=== PATIENT | female | born 1960 | race Caucasian/White ===

== ENCOUNTER → 2021-01-16 11:34 | Outpatient (CLI) | payer OTHER, SELFPAY | PROVIDERS: Referring Provider Physician Assistant; Visit Provider Physician Assistant | DX: R30.9 Painful micturition, unspecified (principal) | CPT/HCPCS: 87086 ==

== ENCOUNTER 2024-05-30 00:30 | Emergency (ER) | payer OTHER, SELFPAY ==
[2024-05-30] VITALS (11 sets, daily range): BP systolic 119–135; BP diastolic 54–60; PULSE 92–116; RESP 20–34; TEMP 37.6; O2SAT 93–97; BMI 47.8
[2024-05-30 01:17] LABS: Hematocrit 42.6 % (36-46); Hemoglobin 14.3 g/dL (12.0-16.0); Mean Corpuscular HGB Conc 33.5 % (30-36); Mean Corpuscular Hemoglobin 28.2 PG (26-34); Mean Corpuscular Volume 84.3 fL (80-100); Platelet Count 339 X10^3/uL (150-400); Red Blood Cell Count 5.06 X10^6/uL (4.0-5.2); Red Cell Distribution Width 14.9 % (11.6-14.8); White Blood Cell Count 9.7 X10^3/uL (4.5-11.0)
[2024-05-30 01:19] LABS: Add Manual Diff / Slide Review YES
[2024-05-30 01:23] LABS: Alanine Aminotransferase 23 IU/L (<35); Albumin 3.2 g/dL (3.5-5.0); Alkaline Phosphatase 161 U/L (38-126); Aspartate Aminotransferase 31 IU/L (14-36); BUN Creatinine Ratio 16.2 (6-22); Blood Urea Nitrogen 22 mg/dL (7-17); Calcium 9.6 mg/dL (8.4-10.2); Carbon Dioxide 21 mmol/L (22-32); Chloride 100 mmol/L (98-107); Estimated Glomerular Filt Rate 43 mL/min (>60); Globulin 3.1 g/dL (1.7-4.1); Glucose 173 mg/dL (80-110); HEMOLYSIS < 15 (0-50); Potassium 4.3 mmol/L (3.4-5.1); Sodium 133 mmol/L (137-145); Total Protein 6.3 g/dL (6.3-8.2)
[2024-05-30 01:38] LABS: Neutrophils Absolute Manual 8827 /uL (3000-5900); Total Cells Counted 100
[2024-05-30 01:39] LABS: RBC Morphology Normal Morphology
[2024-05-30 01:46] LABS: Appearance Urine UA TURBID; Bilirubin Urine UA NEGATIVE (NEGATIVE); Color Urine UA YELLOW; Glucose Urine UA 3+ g/dL (Negative); Ketones Urine UA 1+ (NEGATIVE); Leukocyte Esterase Urine UA 1+ (NEGATIVE); Nitrite Urine UA NEGATIVE (Negative); Occult Blood Urine UA 3+ (Negative); Protein Urine UA 2+ (Negative); Specific Gravity Urine UA 1.025 (1.000-1.035); Urobilinogen Urine UA 0.2 E.U./dL (0.2)
--- NOTE | 2024-05-30 01:50 | ED_ITS ---
HPI - Abdominal Pain General Chief Complaint: Urogenital-Female Stated Complaint: abd pain Time Seen by Provider: 05/30/24 01:50 Source: patient Mode of arrival: EMS History of Present Illness HPI narrative: Patient is a 63-year-old female with a past medical history of hypertension hyperlipidemia comes into the ED from home via EMS for evaluation of ?not feeling well to note she states that she did have a stent placed to her right kidney on 05/05/2024 and was started on Cipro, she states that she has 1 more day of this antibiotic, she denies any actual true flank pain or abdominal pain just states that she feels ?poor/off. Patient states that she follows with Urology at [facility] in [place]. States that she has an appointment for a follow up CT scan next week to discuss whether or not stent needs to be removed or if patient needs a nephrostomy tube. She states that she is having issues with this given the fact that in the past she had a very large stone that cause scarring and is now having recurrent UTI/pyelonephritis issues. She states that she is not having any other symptoms at this time. Related Data Home Medications Medication Instructions Recorded Confirmed amlodipine 10 mg tablet 10 mg PO DAILY 01/16/21 01/16/21 ciclesonide 80 mcg/actuation 1 puff inhalation BID 01/16/21 01/16/21 aerosol inhaler (Alvesco) glimepiride 4 mg tablet 4 mg PO DAILY 01/16/21 01/16/21 hydrochlorothiazide 25 mg tablet 25 mg PO DAILY 01/16/21 01/16/21 losartan 100 mg tablet 100 mg PO DAILY 01/16/21 01/16/21 metformin 500 mg tablet 500 mg PO TID 01/16/21 01/16/21 oxybutynin chloride 10 mg 10 mg PO DAILY 01/16/21 01/16/21 tablet,extended release 24 hr simvastatin 20 mg tablet 20 mg PO DAILY 01/16/21 01/16/21 Previous Rx's Medication Instructions Recorded ciprofloxacin HCl 500 mg tablet 500 mg PO BID 1 week #14 tabs 05/30/24 Allergies Allergy/AdvReac Type Severity Reaction Status Date / Time lisinopril Allergy Mild Cough Verified 01/16/21 11:09 Sulfa (Sulfonamide Allergy Mild Hives Verified 01/16/21 11:09 Antibiotics) cephalexin [From Keflex] Allergy Hives Verified 05/30/24 01:54 Review of Systems Review of Systems Narrative: General: Positive feeling off, Cooperative, well-developed, not in acute distress HEENT: Normocephalic, atraumatic, PERRLA, normal sclera, eyelids normal Neck: Active full range of motion, atraumatic Chest: Normal to inspection, negative crepitus, no overlying erythema ecchymosis Respiratory: Normal respiratory effort, not in acute respiratory distress, clear to auscultation bilaterally negative cough, wheeze, tachypnea, rhonchi, rales Cardiology: Regular rate rhythm negative gallop, murmur, rubs GI/: No tenderness to palpation, soft, non rigid, normal to inspection, exam deferred MSK: Full active range of motion in all 4 extremities, atraumatic, no tenderness to palpation of any bony prominences Skin: No rashes or lesions noted Neuro: Alert awake oriented x3, moves all 4 extremities spontaneously, cranial nerves intact, able to answer all questions appropriately follows commands appropriately Psych: Cooperative, negative suicidal or homicidal ideations Exam Narrative Exam Narrative: General: Cooperative, well-developed, not in acute distress HEENT: Normocephalic, atraumatic, PERRLA, normal sclera, eyelids normal Neck: Active full range of motion, atraumatic Chest: Normal to inspection, negative crepitus, no overlying erythema ecchymosis Respiratory: Normal respiratory effort, not in acute respiratory distress, clear to auscultation bilaterally negative cough, wheeze, tachypnea, rhonchi, rales Cardiology: Regular rate rhythm negative gallop, murmur, rubs GI/: No tenderness to palpation, soft, non rigid, normal to inspection, exam deferred MSK: Full active range of motion in all 4 extremities, atraumatic, no tenderness to palpation of any bony prominences Skin: No rashes or lesions noted Neuro: Alert awake oriented x3, moves all 4 extremities spontaneously, cranial nerves intact, able to answer all questions appropriately follows commands appropriately Psych: Cooperative, negative suicidal or homicidal ideations Initial Vital Signs Initial Vital Signs: Vital Signs Pulse Rate 116 H 05/30/24 00:34 Pulse Oximetry 95 05/30/24 00:34 Course Orders Ordered: ED Orders 05/30/24 00:50 CMP [Comprehensive Metabolic Panel] Stat Complete Blood Count AUTO DIFF Stat 05/30/24 01:39 Urinalysis and Microscopic Stat Urine Culture Stat 05/30/24 01:52 CT abdomen pelvis w con Stat Ondansetron HCl (Ondansetron 4 Mg/2 Ml Inj) 4 mg IV NOW PRN PRN Reason: Nausea And Vomiting Ondansetron HCl (Ondansetron 4 Mg Odt) 4 mg SL NOW PRN PRN Reason: Nausea And Vomiting Discontinued Medications Sodium Chloride (Normal Saline 0.9%) 1,000 mls @ 1,000 mls/hr IV BOLUS ONE Stop: 05/30/24 02:50 Last Admin: 05/30/24 02:50 Dose: 1,000 mls/hr Documented By: NICKO Ceftriaxone Sodium 2,000 mg/ (Sodium Chloride) 100 mls @ 200 mls/hr IV NOW ONE Stop: 05/30/24 02:05 Last Admin: 05/30/24 02:49 Dose: 200 mls/hr Documented By: NICKO Vital Signs Vital signs: Vital Signs - 8 hr 05/30/24 00:34 05/30/24 00:35 05/30/24 00:35 Temperature Pulse Rate 116 H 116 H Respiratory Rate Blood Pressure 135/60 Pulse Oximetry 95 95 Oxygen Delivery Method 05/30/24 00:37 05/30/24 00:41 05/30/24 00:41 Temperature 99.7 F H Pulse Rate 115 H 109 H Respiratory Rate 26 H Blood Pressure 135/60 130/60 Pulse Oximetry 95 95 Oxygen Delivery Method Room Air 05/30/24 01:00 05/30/24 01:08 05/30/24 01:08 Temperature Pulse Rate 109 H 105 H Respiratory Rate 29 H 32 H Blood Pressure 126/57 L Pulse Oximetry 94 Oxygen Delivery Method 05/30/24 01:30 05/30/24 01:30 Temperature Pulse Rate 114 H Respiratory Rate 34 H Blood Pressure 119/54 L Pulse Oximetry 93 Oxygen Delivery Method MDM - Abdominal Pain Differential Diagnosis Differential diagnosis: Likely other (Pyelonephritis, urinary tract infection, abdominal pain, electrolyte abnormality) Lab Data 05/30/24 00:50 05/30/24 00:50 Labs: Lab Results 05/30/24 05/30/24 Range/Units 00:50 01:39 WBC 9.7 (4.5-11.0) X10^3/uL RBC 5.06 (4.0-5.2) X10^6/uL Hgb 14.3 (12.0-16.0) g/dL Hct 42.6 (36-46) % MCV 84.3 (80-100) fL MCH 28.2 (26-34) PG MCHC 33.5 (30-36) % RDW 14.9 H (11.6-14.8) % Plt Count 339 (150-400) X10^3/uL Neut % (Auto) Not Reportable Lymph % (Auto) Not Reportable Carroll % (Auto) Not Reportable Eos % (Auto) Not Reportable Baso % (Auto) Not Reportable Lymph # (Auto) Not Reportable Carroll # (Auto) Not Reportable Baso # (Auto) Not Reportable Total Counted 100 Seg Neutrophils % 82.0 H (38-70) % Band Neutrophils % 9.0 H (3-7) % Lymphocytes % (Manual) 9.0 L (25-45) % Neutrophils # (Manual) 8827 H (6642-9567) /uL RBC Morphology Normal morphology Sodium 133 L (137-145) mmol/L Potassium 4.3 (3.4-5.1) mmol/L Chloride 100 (98-107) mmol/L Carbon Dioxide 21 L (22-32) mmol/L BUN 22 H (7-17) mg/dL Creatinine 1.36 H (0.52-1.04) mg/dL Estimated GFR 43 L (>60) mL/min BUN/Creatinine Ratio 16.2 (6-22) Glucose 173 H (80-110) mg/dL Calcium 9.6 (8.4-10.2) mg/dL Total Bilirubin 1.0 (0.2-1.3) mg/dL AST 31 (14-36) IU/L ALT 23 (<35) IU/L Alkaline Phosphatase 161 H (38-126) U/L Total Protein 6.3 (6.3-8.2) g/dL Albumin 3.2 L (3.5-5.0) g/dL Globulin 3.1 (1.7-4.1) g/dL Albumin/Globulin Ratio 1.0 (1.0-2.8) Urine Color Yellow Urine Appearance Turbid Urine pH 5.0 (4.5-8.0) Ur Specific Rankin 1.025 (1.000-1.035) Urine Protein 2+ H (Negative) Urine Glucose (UA) 3+ H (Negative) g/dL Urine Ketones 1+ H (NEGATIVE) Urine Occult Blood 3+ H (Negative) Urine Nitrate Negative (Negative) Urine Bilirubin Negative (NEGATIVE) Urine Urobilinogen 0.2 (0.2) E.U./dL Ur Leukocyte Esterase 1+ H (NEGATIVE) Urine RBC 10-30/hpf H (0-5/HPF) Urine WBC >100/hpf H (0-5/HPF) Ur Squamous Epith Cells 1-5 /hpf (0-5/HPF) Urine Bacteria Many (>30) H (None) Ur Culture Indicated? Specimen cultured Vol Urine Centrifuged 10ml (spun) MDM Narrative Medical decision making narrative: 63-year-old female with a past medical history of hypertension diabetes comes into the ED via EMS from home for evaluation of general malaise, she states that on 05/05/2024 she had a stent placed to her right kidney by her urologist at [facility] in [place]. She states that she was started on ciprofloxacin prophylactically, she states that she had persistent pain discomfort and had to have the stent replaced on 05/15/2024, she states that she wheezes restarted on ciprofloxacin and is on her last day of this. She does not have any actual abdominal pain or flank pain just states that she feels ?off. She states that she has an appointment with her urologist next week for repeat CT scan to discuss whether or not patient needs a percutaneous drain, she states that she has been having recurrent UTI/pyelonephritis due to the fact that in 2019 she had a very large kidney stone that caused a lot of scarring. Patient without leukocytosis here in the emergency department, patient did have mildly bumped creatinine at 1.36 and a GFR of 43, urinalysis was consistent with urinary tract infection therefore Rocephin was ordered here in the emergency department. CT scan showing moderate left hydronephrosis with perinephric inflammatory changes with stent in place. Given patient with what appears to be infected stent we will reach out to patient's urologist/team, Jovana Rose (at [facility]). [id number]: Had a discussion with urologist Dr. Cabral at [facility], discussed findings of the CT scan and urinalysis and blood work here, discussed my concerns for the patient with an infected stent given patient is still with abnormal urinalysis and on ciprofloxacin for the past several days. He states that given the fact that patient is not meeting sepsis criteria no need for transfer at this time, states no need for emergent or urgent intervention, is stating that patient should continue taking ciprofloxacin and should call the office to schedule follow up. I informed patient of the recommendations, she states that she understands and agrees with this, I gave her strict return precautions and she verbalized these, patient will be sent home with outpatient follow up Discharge Plan Departure Patient Disposition: Home Clinical Impression: Acute pyelonephritis Activity Restrictions/Additional Instructions: Please call your urology office in the morning to discuss next steps and plans given your pyelonephritis and infected stent Please return immediately to the emergency department if you start developing a fever or symptoms started getting worse Please read the discharge instructions sheet carefully and bring all papers to all doctor follow-up visits, as it may contain information that your doctor may want to see. Disease processes change and evolve, if your symptoms worsen or if you develop any new symptoms that are concerning to you please return for evaluation. Your evaluation today does not show any evidence of any life- threatening/serious illnesses requiring admission to the hospital or surgery. Please follow-up with your doctor for re-evaluation in approximately 1 day. Seek immediate medical attention for any worrisome symptoms. *If you do not have a primary care provider please contact the [facility] Resource line at [phone]. They will ask some questions about your medical history and help get you set up with a doctor in the community. Prescriptions: New ciprofloxacin HCl 500 mg tablet 500 mg PO BID 7 Days Qty: 14 0RF No Action metformin 500 mg tablet 500 mg PO TID oxybutynin chloride 10 mg tablet extended release 24hr 10 mg PO DAILY amlodipine 10 mg tablet 10 mg PO DAILY Alvesco 80 mcg/actuation HFA aerosol inhaler 1 puff inhalation BID glimepiride 4 mg tablet 4 mg PO DAILY hydrochlorothiazide 25 mg tablet 25 mg PO DAILY losartan 100 mg tablet 100 mg PO DAILY simvastatin 20 mg tablet 20 mg PO DAILY Referrals: Miscellaneous,Doctor, MD [Primary Care Provider] - Stand Alone Forms: Patient Portal/API/Survey
--- NOTE | 2024-05-30 01:52 | DI.CT.S_ITS ---
PROCEDURE: CT ABDOMEN PELVIS W CON INDICATIONS: patient with stent to left kidney TECHNIQUE: After the administration of intravenous contrast, axial sections acquired from the lung bases to the pubic symphysis. Coronal and sagittal reformats were performed. For radiation dose reduction, the following was used: automated exposure control, adjustment of mA and/or kV according to patient size. COMPARISON: None. FINDINGS: Image quality: Diagnostic Lower chest: Basal atelectasis. Partially seen coronary calcifications. Liver: Unremarkable Gallbladder and biliary system: Unremarkable, nondilated Pancreas: No ductal dilation Spleen: Prominent at 12 cm Adrenals: Left adrenal thickening. Kidneys: No right hydronephrosis. No solid renal mass. Left-sided stent in place. Moderate left hydronephrosis and perinephric edema. Nonobstructing 9 mm calculus is seen at the left lower calyx. Vessels and lymph nodes: Main portal vein appears patent. No abdominal aortic aneurysm. No pathologic lymphadenopathy by size criteria. Nonspecific prominent periportal lymph nodes are present, possibly reactive. Bowel and peritoneum: No small bowel obstruction. No drainable abscess or ascites. Small scattered diverticula Body wall: Unremarkable Pelvis: Bladder is under distended. Uterus is absent Bones: No aggressive appearing osseous abnormality. There are degenerative changes. IMPRESSION: Left ureteral stent. Moderate hydronephrosis. Delayed left nephrogram indicating obstructive uropathy, with moderate surrounding edema. Differential includes stent dysfunction. Nonobstructing left lower pole 9 mm calculus. Other findings as above. No significant changes to the preliminary report. Dictated by: Orestes Rogers M.D. on 05/30/2024 at 7:38 Approved by: Orestes Rogers M.D. on 05/30/2024 at 7:42
[2024-05-30 01:57] LABS: Bacteria Urine Many (>30); Culture Indicated Urine Specimen Cultured; RBC Urine 10-30/HPF (0-5/HPF); Squamous Epithelial Cell Urine 1-5 /HPF (0-5/HPF); Urine Volume 10mL (spun); WBC Urine >100/HPF (0-5/HPF)
[2024-05-30] MEDS: cefTRIAXone 2,000 MG in SODIUM CHLORIDE 0.9% 100 ML 200 MG IV (02:49)
[2024-05-30] MEDS: SODIUM CHLORIDE 0.9% 1,000 ML 1000 ML IV (02:50)
== END 2024-05-30 04:44 | disposition home or self-care (01) ==
PROVIDERS: Emergency Provider Student in an Organized Health Care Education/Training Program
DX: N10 Acute pyelonephritis (principal)
CPT/HCPCS: 36415; 74177; 80053; 81001; 85007; 85025; 87086; 96365; 96366; 99283; 99284; J0696; Q9967